=== PATIENT | female | born 1980 | race Caucasian/White ===

== ENCOUNTER 2019-10-03 15:23 | Outpatient (CLI) | payer OTHER, SELFPAY ==
[2019-10-03 16:04] LABS: Rheumatoid Factor < 8.6 IU/ML (<12)
[2019-10-06 21:46] LABS: Anti Cyclic Citrullinated Pept <16 Units (<20)
== END 2019-10-03 15:24 | disposition home or self-care (01) ==
PROVIDERS: PCP Nurse Practitioner Family; Visit Provider Nurse Practitioner Family
DX: M25.50 Pain in unspecified joint (principal); Z82.61 Family history of arthritis
CPT/HCPCS: 36415; 86038; 86200; 86430

== ENCOUNTER 2020-02-02 17:24 | Emergency (ER) | payer OTHER, SELFPAY ==
--- NOTE | ~2020-02-02 | XR_ITS ---
EXAMINATION: XR chest 1V portable EXAM DATE: 02/02/2020 18:58 INDICATION: Shortness of breath. COVID 19 positive. TECHNIQUE: Portable AP frontal chest x-ray was obtained. There is no prior study for comparison. FINDINGS: The lungs are clear. There are no pleural effusions. The cardiomediastinal silhouette is within normal limits. There is no pneumothorax suspected. The bones and soft tissues are unremarkab le. IMPRESSION: No acute cardiopulmonary findings. Reviewed, dictated and finalized at location A.
[2020-02-02 17:42] VITALS: BP 138/78; PULSE 84; RESP 17; TEMP 36.2; O2SAT 100
--- NOTE | 2020-02-02 17:46 | ECG_ITS ---
Measurements Intervals [place] Rate: 73 P: -33 LA: 133 QRS: 20 QRSD: 94 T: 16 QT: 363 QTc: 400 Interpretive Statements SINUS RHYTHM BORDERLINE T WAVE ABNORMALITY- INFERIOR LEADS BORDERLINE ECG Electronically Signed On 02-03-2020 7:33:42 CDT by Damien Alvarez D.O.
[2020-02-02 17:54] LABS: Hematocrit 38.3 % (37.0-47.0); Immature Granulocyte Absolute 0.02 K/mm3 (0.00-0.031); Immature Granulocyte Percent A 0.3 % (0-0.5); Lymphocytes Absolute Auto 0.83 K/mm3 (0.9-3.2); Lymphocytes Percent Auto 13.8 % (18.3-44.2); Mean Corpuscular HGB Conc 33.9 g/dl (32-36); Mean Corpuscular Hemoglobin 29.6 pg (26-34); Mean Corpuscular Volume 87.2 fl (80-100); Mean Platelet Volume 10.1 fl (7.4-10.4); Monocytes Absolute Auto 0.1 K/mm3 (0.1-0.6); Monocytes Percent Auto 2.3 % (2.6-8.5); Neutrophils Percent Auto 83.6 % (45.5-73.1); Platelet Count Result 271 k/mm3 (150-375); Red Blood Count 4.39 M/mm3 (4.2-5.4); Red Cell Distribution Width 12.8 % (11.5-14.5)
[2020-02-02 18:05] LABS: Anion Gap 11 mmol/L (8-16); Blood Urea Nitrogen 14 mg/dL (7-17); Calcium 9.3 mg/dL (8.4-10.2); Carbon Dioxide 22 mmol/L (22-30); Chloride 102 mmol/L (98-107); Estimated CRCL calculation 78 ml/min; Estimated Glomerular Filt Rate > 60; Glucose 126 mg/dL (65-105); Potassium 4.1 mmol/L (3.4-5.0); Sodium 135 mmol/L (137-145)
[2020-02-02 18:17] LABS: Troponin I < 0.012 ng/mL (0.000-0.034)
--- NOTE | 2020-02-02 19:13 | ED.SOB ---
HPI - SOB/Dyspnea General Chief Complaint: Shortness of Breath/Dyspnea Stated Complaint: COVID positive, weakness Time Seen by Provider: 02/02/20 19:09 History of Present Illness HPI Narrative: Started having respiratory symptoms 1 week ago. They have progressed to SOB, generalized weakness, myalgias. COVID-19 test came back positive today. Vital normal during triage. Related Data Home Medications Medication Instructions Recorded Confirmed albuterol sulfate 1 inh INHALATION QID 02/02/20 azithromycin 02/02/20 clonazepam 02/02/20 dexamethasone 02/02/20 fluoxetine mg 02/02/20 levonorgestrel-ethinyl estrad 02/02/20 [Introvale] pantoprazole PO 02/02/20 Allergies Allergy/AdvReac Type Severity Reaction Status Date / Time latex Allergy Unknown Unknown Verified 02/02/20 20:37 bupropion [From Wellbutrin] Allergy Seizure Verified 02/02/20 20:37 Review of Systems Review of Systems: All systems reviewed & are unremarkable except as noted in HPI and below Constitutional: Constitutional: Reports weakness ENT: Denies sore throat Cardiovascular: Cardiovascular: Reports chest pain Respiratory: Respiratory: Reports chest congestion, Reports cough and Reports dyspnea Gastrointestinal: Gastrointestinal: Reports nausea Genitourinary: Genitourinary: Denies hematuria and Denies dysuria Musculoskeletal: Musculoskeletal: Reports back pain Neurologic: Reports dizziness, Denies syncope and Reports weakness PMFSH Family History Family History Mother Family history of thyroid disease Grandparent Family history of rheumatoid arthritis Family history of pancreatic cancer Family history of primary malignant neoplasm of liver Other Diabetes mellitus Family history of Parkinson's disease Family history of dementia Social History Social History Smoking status: Former smoker Smoking end date: 05/24/12 Alcohol intake: current Gender identity (if verbalized by the patient): Female Exam Const: General: healthy appearing, no acute distress and alert Nutritional Appearance: well nourished Orientation/consciousness: patient oriented x3 HENMT: Head: normal to inspection Neck: Neck: normal visual inspection Chest: Chest palpation & inspection: normal inspection of the chest Resp: Effort & Inspection: normal respiratory effort Auscultation: clear to auscultation bilaterally Cardio: Rate: regular rate Rhythm: regular rhythm GI: GI Palp: Yes Soft to palpation and No Tenderness to palpation present (GI) Skin: General skin exam: normal color Neuro: General: patient oriented x3, moves all extremities, no focal motor deficits and CN's II-XI intact bilaterally Speech: normal speech Extrem: General: normal to inspection Course Vital Signs Vital signs: Vital Signs Temperature 36.2 C L 02/02/20 17:42 Pulse Rate 84 02/02/20 17:42 Respiratory Rate 17 02/02/20 17:42 Blood Pressure 138/78 02/02/20 17:42 Pulse Oximetry 100 02/02/20 17:42 Temperature 36.8 C 02/02/20 20:30 Pulse Rate 72 02/02/20 20:30 Respiratory Rate 14 02/02/20 20:30 Blood Pressure 117/62 02/02/20 20:30 Pulse Oximetry 100 02/02/20 20:30 MDM - SOB/Dyspnea Medical Records Attestation: I reviewed the patient's medical records. Lab Data Attestation: I reviewed the patient's lab results. Result diagrams: 02/02/20 17:48 02/02/20 17:48 Labs: Lab Results 02/02/20 02/02/20 Range/Units 17:48 17:48 WBC 6.0 (4.5-10.0) K/mm3 RBC 4.39 (4.2-5.4) M/mm3 Hgb 13.0 (12.0-15.0) g/dL Hct 38.3 (37.0-47.0) % MCV 87.2 (80-100) fl MCH 29.6 (26-34) pg MCHC 33.9 (32-36) g/dl RDW 12.8 (11.5-14.5) % Plt Count 271 (150-375) k/mm3 MPV 10.1 (7.4-10.4) fl Immature Gran % (Auto) 0.3 (0-0.5) % Neut % (Auto) 83.6 H (45.5-73.
[2020-02-02] MEDS: KETOROLAC 30 MG/ML VIAL (*BKC) IV PUSH (20:25)
[2020-02-02] MEDS: SODIUM CHLORIDE 0.9% IV 1,000 ML 999 ML IV CONT (20:27)
[2020-02-02 20:30] VITALS: BP 117/62; PULSE 72; RESP 14; TEMP 36.8; O2SAT 100
== END 2020-02-02 21:54 | disposition home or self-care (01) ==
PROVIDERS: Emergency Medicine; Emergency Provider Emergency Medicine
DX: U07.1 COVID-19 (principal); Z87.891 Personal history of nicotine dependence
CPT/HCPCS: 36415; 71045; 80048; 84484; 85025; 93005; 96361; 96374; 96375; 99284; J0131; J1885; J7030